=== PATIENT | female | born 1985 | race Caucasian/White ===

== ENCOUNTER 2017-06-01 10:21 | Emergency (ER) | payer OTHER ==
[2017-06-01] MEDS ORDERED: SODIUM CHLORIDE 0.9% 1,000 ML IV STA (10:43)
--- NOTE | 2017-06-01 10:50 | ED ---
Abdominal Pain HPI <Alvaro Sahu - Last Filed: 06/01/17 12:47> - General Source: patient, RN notes reviewed Mode of arrival: ambulatory Limitations: no limitations <Aiden Frazier - Last Filed: 06/01/17 12:52> - General Chief Complaint: Abdominal Pain Stated Complaint: abdominal pain Time Seen by Provider: 06/01/17 10:34 - History of Present Illness Initial Comments: 31-year-old female presents emergency Department chief complaint of upper abdominal pain. Patient states she had pain similar to this proximal one year ago and she was diagnosed with gallstones. She states that she male with the surgeon was can have surgery but the pain resolved so she decided not to have surgery. Patient states the pain started can this morning she went to urgent care was given Toradol which is improved symptoms and denies any nausea vomiting. Denies any known fever. Patient states that she's had no change in bowel habits. She has had a prior tubal ligation, section other abdominal surgeries. Patient denies any dysuria, hematuria, vaginal bleeding vaginal discharge. Denies any acid reflux (Aiden Frazier) - Related Data Previous Rx's Medication Instructions Recorded Hydrocodone/Acetaminophen [[place] 1 tab PO Q6HR PRN #20 tab 06/01/17 5-325] Ondansetron Odt [Zofran Odt] 4 mg PO Q8HR PRN #14 tab 06/01/17 Allergies Allergy/AdvReac Type Severity Reaction Status Date / Time No Known Allergies Allergy Verified 06/01/17 10:53 Review of Systems ROS Other: All systems not noted in ROS Statement are negative. <Alvaro Sahu - Last Filed: 06/01/17 12:47> ROS Other: All systems not noted in ROS Statement are negative. <Aiden Frazier - Last Filed: 06/01/17 12:52> ROS Statement: Those systems with pertinent positive or pertinent negative responses have been documented in the HPI. Past Medical History Past Medical History: No Reported History History of Any Multi-Drug Resistant Organisms: None Reported Past Surgical History: Tubal Ligation Past Psychological History: No Psychological Hx Reported Smoking Status: Never smoker Past Alcohol Use History: None Reported Past Drug Use History: None Reported <Aiden Frazier - Last Filed: 06/01/17 12:52> General Exam Limitations: no limitations General appearance: alert, in no apparent distress Head exam: Present: atraumatic, normocephalic, normal inspection Neck exam: Present: normal inspection, full ROM. Absent: tenderness, meningismus, lymphadenopathy Respiratory exam: Present: normal lung sounds bilaterally. Absent: respiratory distress, wheezes, rales, rhonchi, stridor Cardiovascular Exam: Present: regular rate, normal rhythm, normal heart sounds. Absent: systolic murmur, diastolic murmur, rubs, gallop, clicks GI/Abdominal exam: Present: soft, tenderness (Mild epigastric and right upper quadrant tenderness), normal bowel sounds. Absent: distended, guarding, rebound , rigid Back exam: Absent: CVA tenderness (R), CVA tenderness (L) <Aiden Frazier - Last Filed: 06/01/17 12:52> Course <Alvaro Sahu - Last Filed: 06/01/17 12:47> <Aiden Frazier - Last Filed: 06/01/17 12:52> Vital Signs 06/01/17 06/01/17 10:30 12:40 Temperature 97.7 F 98.2 F Pulse Rate 71 60 Respiratory 18 16 Rate Blood Pressure 131/91 117/62 O2 Sat by Pulse 100 98 Oximetry - Reevaluation(s) Reevaluation #1: 06/01/17 12:47 Patient was evaluated by myself, Dr. Sahu. Patient standing at bedside comfortably. Abdominal exam with mild tenderness right upper quadrant and epigastric. Ultrasound and labs reviewed. Case was discussed in detail with Dr. Schultz, who does feel comfortable with discharge of patient. He feels it is very unlikely for patient to have an obstructed stone with normal enzymes. He will follow-up with patient on . (Alvaro Sahu) Medical Decision Making - Lab Data Result diagrams: 06/01/17 11:05 06/01/17 11:05 <Alvaro Sahu - Last Filed: 06/01/17 12:47> - Lab Data Result diagrams: 06/01/17 11:05 06/01/17 11:05 <Aiden Frazier - Last Filed: 06/01/17 12:52> - Medical Decision Making 31-year-old female presented for right quadrant epigastric pain. Patient's found to have cholelithiasis. Dr. Sahu did discuss case with Dr. bowel will follow-up with the patient on . Patient be discharged with analgesics and antiemetics. Patient advised to return if symptoms worsen. Patient agrees to plan. (Aiden Frazier) - Lab Data Lab Results 06/01/17 06/01/17 06/01/17 Range/Units 11:05 11:05 11:05 WBC 9.8 (3.8-10.6) k/uL RBC 4.52 (3.80-5.40) m/uL Hgb 12.7 (11.4-16.0) gm/dL Hct 37.3 (34.0-46.0) % MCV 82.5 (80.0-100.0) fL MCH 28.1 (25.0-35.0) pg MCHC 34.1 (31.0-37.0) g/dL RDW 13.1 (11.5-15.5) % Plt Count 388 (150-450) k/uL Neutrophils % 82 % Lymphocytes % 13 % Monocytes % 3 % Eosinophils % 1 % Basophils % 1 % Neutrophils # 8.0 H (1.3-7.7) k/uL Lymphocytes # 1.3 (1.0-4.8) k/uL Monocytes # 0.3 (0-1.0) k/uL Eosinophils # 0.1 (0-0.7) k/uL Basophils # 0.1 (0-0.2) k/uL Sodium 141 (137-145) mmol/L Potassium 4.9 (3.5-5.1) mmol/L Chloride 103 (98-107) mmol/L Carbon Dioxide 25 (22-30) mmol/L Anion Gap 13 mmol/L BUN 12 (7-17) mg/dL Creatinine 0.50 L (0.52-1.04) mg/dL Est GFR (CKD-EPI)AfAm >90 (>60 ml/min/1.73 sqM) Est GFR (CKD-EPI)NonAf >90 (>60 ml/min/1.73 sqM) Glucose 147 H (74-99) mg/dL Calcium 9.8 (8.4-10.2) mg/dL Total Bilirubin 0.4 (0.2-1.3) mg/dL AST 32 (14-36) U/L ALT 41 (9-52) U/L Alkaline Phosphatase 78 (38-126) U/L Total Protein 8.0 (6.3-8.2) g/dL Albumin 4.2 (3.5-5.0) g/dL Amylase 52 (30-110) U/L Lipase 125 (23-300) U/L Urine Color Yellow Urine Appearance Clear (Clear) Urine pH 6.5 (5.0-8.0) Ur Specific [place] 1.022 (1.001-1.035) Urine Protein Negative (Negative) Urine Glucose (UA) Negative (Negative) Urine Ketones Negative (Negative) Urine Blood Negative (Negative) Urine Nitrite Negative (Negative) Urine Bilirubin Negative (Negative) Urine Urobilinogen <2.0 (<2.0) mg/dL Ur Leukocyte Esterase Trace H (Negative) Urine RBC 1 (0-5) /hpf Urine WBC 4 (0-5) /hpf Ur Squamous Epith Cells 4 (0-4) /hpf Urine Bacteria Rare H (None) /hpf Urine Mucus Rare H (None) /hpf Disposition <Alvaro Sahu - Last Filed: 06/01/17 12:47> Time of Disposition: 12:52 <Aiden Frazier - Last Filed: 06/01/17 12:52> Clinical Impression: Abdominal pain, Cholelithiasis Disposition: HOME SELF-CARE Condition: Stable Instructions: Gallstones (ED) Additional Instructions: Call Dr. adame's office to schedule appointment on as directed.Please return to the Emergency Department if symptoms worsen or any other concerns. Prescriptions: Hydrocodone/Acetaminophen [[place] 5-325] 1 tab PO Q6HR PRN #20 tab PRN Reason: Pain Ondansetron Odt [Zofran Odt] 4 mg PO Q8HR PRN #14 tab PRN Reason: Nausea Referrals: Fam Ramirez MD [Medical Doctor] - 1-2 days
[2017-06-01 11:24] LABS: Basophils # (A) 0.1 k/uL (0-0.2); Basophils % (A) 1 %; Eosinophils # (A) 0.1 k/uL (0-0.7); Eosinophils % (A) 1 %; HCT 37.3 % (34.0-46.0); HGB 12.7 gm/dL (11.4-16.0); Lymphocytes # (A) 1.3 k/uL (1.0-4.8); Lymphocytes % (A) 13 %; MCH 28.1 pg (25.0-35.0); MCHC 34.1 g/dL (31.0-37.0); MCV 82.5 fL (80.0-100.0); Mean Platelet Volume 7.8; Monocytes # (A) 0.3 k/uL (0-1.0); Monocytes % (A) 3 %; Neutrophils % (A) 82 %; Platelet Count 388 k/uL (150-450); RBC 4.52 m/uL (3.80-5.40); RDW 13.1 % (11.5-15.5); WBC 9.8 k/uL (3.8-10.6)
[2017-06-01 11:38] LABS: Appearance,Urine Clear (Clear); Bacteria,Urine Rare /hpf; Bilirubin,Urine Negative (Negative); Blood,Urine Negative (Negative); Color,Urine Yellow; Glucose,Urine (UA) Negative (Negative); Ketones,Urine Negative (Negative); Leukocyte Esterase,Urine Trace (Negative); Mucus,Urine Rare /hpf; Nitrite,Urine Negative (Negative); PH, Urine 6.5 (5.0-8.0); Protein,Urine Negative (Negative); RBC,Urine 1 /hpf (0-5); Specific Gravity,Urine 1.022 (1.001-1.035); Squamous Epithelial Cell,Urine 4 /hpf (0-4); Urobilinogen,Urine <2.0 mg/dL (<2.0); WBC,Urine 4 /hpf (0-5)
[2017-06-01 11:39] LABS: ALT 41 U/L (9-52); AST 32 U/L (14-36); Albumin 4.2 g/dL (3.5-5.0); Alkaline Phosphatase 78 U/L (38-126); Amylase 52 U/L (30-110); Anion Gap 13 mmol/L; Blood Urea Nitrogen 12 mg/dL (7-17); Calcium 9.8 mg/dL (8.4-10.2); Carbon Dioxide 25 mmol/L (22-30); Chloride 103 mmol/L (98-107); Glucose 147 mg/dL (74-99); Lipase 125 U/L (23-300); Potassium 4.9 mmol/L (3.5-5.1); Sodium 141 mmol/L (137-145); Total Bilirubin 0.4 mg/dL (0.2-1.3)
--- NOTE | 2017-06-01 11:59 | US ---
EXAMINATION TYPE: US abdomen limited DATE OF EXAM: 06/01/2017 COMPARISON: NONE CLINICAL HISTORY: Pain. patient had an episode last year and outside US showed stones, opted out of s urgery, extreme pain EXAM MEASUREMENTS: Liver Length: 18.1 cm Gallbladder Wall: 0.2 cm CBD: 0.8 cm Right Kidney: 11.9 x 4.6 x 5.3 cm Pancreas: overlying bowel obscures body and tail Liver: difficult to penetrate Gallbladder: non mobile neck stone seen, multiple fundal stones, appearance of mobile sludge when ro lled patient Evidence for sonographic Etienne's sign: YES CBD: slightly dilated Right Kidney: wnl IMPRESSION: 1. Liver was difficult to penetrate which is a nonspecific finding can be seen with fatty infiltratio n or hepatocellular disease. Correlate clinically. 2. Cholelithiasis with dilation of the CBD measuring 8 mm. Distal CBD stone in the differential diagn osis.
[2017-06-01 12:43] VITALS: BP 117/62; PULSE 60; RESP 16; TEMP 98.2
== END 2017-06-01 13:10 | disposition home or self-care (01) ==
LOC: EC 10:21
DX: K80.20 Calculus of gallbladder without cholecystitis without obstruction (principal); Z98.51 Tubal ligation status
CPT/HCPCS: 36415; 76705; 80053; 81001; 82150; 83690; 85025; 96360; 99284

== ENCOUNTER 2017-06-03 05:51 | Inpatient (IN) | payer OTHER ==
[2017-06-03] MEDS ORDERED: MORPHINE SULFATE 4 MG/ML SYRINGE IV STA (06:12)
[2017-06-03] MEDS ORDERED: SODIUM CHLORIDE 0.9% 500 ML IV STA (06:12)
[2017-06-03] MEDS ORDERED: ONDANSETRON 4 MG/2 ML VIAL IVP STA ×2 (06:12→09:47)
[2017-06-03 06:42] LABS: Basophils # (A) 0.1 k/uL (0-0.2); Basophils % (A) 1 %; Eosinophils # (A) 0.2 k/uL (0-0.7); Eosinophils % (A) 1 %; HCT 35.9 % (34.0-46.0); HGB 12.2 gm/dL (11.4-16.0); Lymphocytes # (A) 2.2 k/uL (1.0-4.8); Lymphocytes % (A) 18 %; MCH 28.2 pg (25.0-35.0); Mean Platelet Volume 7.2; Monocytes # (A) 0.6 k/uL (0-1.0); Monocytes % (A) 5 %; Neutrophils # (A) 8.8 k/uL (1.3-7.7); Neutrophils % (A) 73 %; Platelet Count 341 k/uL (150-450); RBC 4.33 m/uL (3.80-5.40); RDW 13.1 % (11.5-15.5)
[2017-06-03 06:50] LABS: ALT 38 U/L (9-52); AST 20 U/L (14-36); Albumin 3.8 g/dL (3.5-5.0); Alkaline Phosphatase 73 U/L (38-126); Amylase 48 U/L (30-110); Anion Gap 9 mmol/L; Blood Urea Nitrogen 12 mg/dL (7-17); Calcium 9.4 mg/dL (8.4-10.2); Carbon Dioxide 27 mmol/L (22-30); Chloride 105 mmol/L (98-107); Glucose 100 mg/dL (74-99); Lipase 91 U/L (23-300); Potassium 4.4 mmol/L (3.5-5.1); Sodium 141 mmol/L (137-145); Total Bilirubin 0.6 mg/dL (0.2-1.3); Total Protein 7.2 g/dL (6.3-8.2)
--- NOTE | 2017-06-03 07:33 | ED ---
Abdominal Pain HPI - General Source: patient Mode of arrival: ambulatory Limitations: no limitations <Yomi Shah - Last Filed: 06/03/17 07:33> <Leroy Echavarria - Last Filed: 06/03/17 10:13> - General Chief Complaint: Abdominal Pain Stated Complaint: abd pain Time Seen by Provider: 06/03/17 06:12 - History of Present Illness Initial Comments: 31 years O female presents with the abdominal pain, she said she was here couple days ago for the same pain, pain is worse now she was supposed to see a surgeon as outpatient for gallstones. She denies any fever no chills she is nauseous no vomiting though has been moving her bowels pretty regular no frequency urgency dysuria no symptoms of TIA or CVA, review of system is unremarkable otherwise (Yomi Shah) - Related Data Previous Rx's Medication Instructions Recorded Hydrocodone/Acetaminophen [[place] 1 tab PO Q6HR PRN #20 tab 06/01/17 5-325] Ondansetron Odt [Zofran Odt] 4 mg PO Q8HR PRN #14 tab 06/01/17 Allergies Allergy/AdvReac Type Severity Reaction Status Date / Time No Known Allergies Allergy Verified 06/03/17 05:56 Review of Systems ROS Other: All systems not noted in ROS Statement are negative. <Yomi Shah - Last Filed: 06/03/17 07:33> ROS Other: All systems not noted in ROS Statement are negative. <Leroy Echavarria - Last Filed: 06/03/17 10:13> ROS Statement: Those systems with pertinent positive or pertinent negative responses have been documented in the HPI. Past Medical History Past Medical History: No Reported History Additional Past Medical History / Comment(s): gallbladder History of Any Multi-Drug Resistant Organisms: None Reported Past Surgical History: Tubal Ligation Past Psychological History: No Psychological Hx Reported Smoking Status: Never smoker Past Alcohol Use History: None Reported Past Drug Use History: None Reported <Yomi Shah - Last Filed: 06/03/17 07:33> General Exam Limitations: no limitations <Yomi Shah - Last Filed: 06/03/17 07:33> <Leroy Echavarria - Last Filed: 06/03/17 10:13> - General Exam Comments Initial Comments: General: The patient is awake and alert, in no distress, and does not appear acutely ill. Skin: Skin is warm and dry and no rashes or lesions are noted. Eye: Pupils are equal, round and reactive to light, extra-ocular movements are intact; there is normal conjunctiva bilaterally. Ears, nose, mouth and throat: There are moist mucous membranes and no oral lesions. Neck: The neck is supple, there is no tenderness or JVD. Cardiovascular: There is a regular rate and rhythm. No murmur, rub or gallop is appreciated. Respiratory: To auscultation bilateral, no wheezing no rhonchi no distress respiratory celeste noticed Gastrointestinal: And over the epigastric area and the right upper quadrant area positive bowel sounds Back: There is no tenderness to palpation in the midline. There is no obvious deformity. Musculoskeletal: Normal ROM, no tenderness, There is no pedal edema. There is no calf tenderness or swelling. No cords were appreciated. Neurological: CN II-XII intact, Cranial nerves III through XII are intact. There are no obvious motor or sensory deficits. Coordination appears grossly intact. Speech is normal. Psychiatric: Cooperative, appropriate mood & affect, normal judgment. (Yomi Shah) Course <Yomi Shah - Last Filed: 06/03/17 07:33> <Leroy Echavarria - Last Filed: 06/03/17 10:13> Vital Signs 06/03/17 06/03/17 05:54 08:42 Temperature 97.8 F 97.6 F Pulse Rate 84 87 Respiratory 18 18 Rate Blood Pressure 134/78 124/76 O2 Sat by Pulse 99 99 Oximetry Condition is reassessed at term 7:30, white count is slightly elevated compress metabolic panel is unremarkable so are the LFTs,, ultrasound report was reviewed from her previous visit to the ER, it shows gallstones and dilatation of the duct, considering her symptoms will proceed with the CT of the abdomen and pelvis to assess her for possible acute cholecystitis, will be endorsed to DR Echavarria for further follow up on Ct abdomin (Yomi Shah) Medical Decision Making - Lab Data Result diagrams: 06/03/17 06:32 06/03/17 06:32 <Yomi Shah - Last Filed: 06/03/17 07:33> - Lab Data Result diagrams: 06/03/17 06:32 06/03/17 06:32 - Radiology Data Radiology results: report reviewed (CT abdomen and pelvis is positive for gallbladder disease), image reviewed <Leroy Echavarria - Last Filed: 06/03/17 10:13> - Medical Decision Making 31 female the ER for evaluation of severe abdominal pain intractable nausea vomiting history of gallbladder disease, positive: Lithiasis with cholecystitis. Patient be admitted for surgical treatment (Leroy Echavarria ) - Lab Data Lab Results 06/03/17 06/03/17 06/03/17 Range/Units 06:32 06:32 07:46 WBC 12.0 H (3.8-10.6) k/uL RBC 4.33 (3.80-5.40) m/uL Hgb 12.2 (11.4-16.0) gm/dL Hct 35.9 (34.0-46.0) % MCV 83.0 (80.0-100.0) fL MCH 28.2 (25.0-35.0) pg MCHC 34.0 (31.0-37.0) g/dL RDW 13.1 (11.5-15.5) % Plt Count 341 (150-450) k/uL Neutrophils % 73 % Lymphocytes % 18 % Monocytes % 5 % Eosinophils % 1 % Basophils % 1 % Neutrophils # 8.8 H (1.3-7.7) k/uL Lymphocytes # 2.2 (1.0-4.8) k/uL Monocytes # 0.6 (0-1.0) k/uL Eosinophils # 0.2 (0-0.7) k/uL Basophils # 0.1 (0-0.2) k/uL Sodium 141 (137-145) mmol/L Potassium 4.4 (3.5-5.1) mmol/L Chloride 105 (98-107) mmol/L Carbon Dioxide 27 (22-30) mmol/L Anion Gap 9 mmol/L BUN 12 (7-17) mg/dL Creatinine 0.50 L (0.52-1.04) mg/dL Est GFR (CKD-EPI)AfAm >90 (>60 ml/min/1.73 sqM) Est GFR (CKD-EPI)NonAf >90 (>60 ml/min/1.73 sqM) Glucose 100 H (74-99) mg/dL Calcium 9.4 (8.4-10.2) mg/dL Total Bilirubin 0.6 (0.2-1.3) mg/dL AST 20 (14-36) U/L ALT 38 (9-52) U/L Alkaline Phosphatase 73 (38-126) U/L Total Protein 7.2 (6.3-8.2) g/dL Albumin 3.8 (3.5-5.0) g/dL Amylase 48 (30-110) U/L Lipase 91 (23-300) U/L Urine Color Yellow Urine Appearance Cloudy H (Clear) Urine pH 5.5 (5.0-8.0) Ur Specific [place] 1.019 (1.001-1.035) Urine Protein Negative (Negative) Urine Glucose (UA) Negative (Negative) Urine Ketones Negative (Negative) Urine Blood Negative (Negative) Urine Nitrite Negative (Negative) Urine Bilirubin Negative (Negative) Urine Urobilinogen <2.0 (<2.0) mg/dL Ur Leukocyte Esterase Large H (Negative) Urine RBC 4 (0-5) /hpf Urine WBC 29 H (0-5) /hpf Ur Squamous Epith Cells 7 H (0-4) /hpf Urine Bacteria Rare H (None) /hpf Urine Mucus Rare H (None) /hpf Disposition <oYmi Shah - Last Filed: 06/03/17 07:33> <Leroy Echavarria - Last Filed: 06/03/17 10:13> Clinical Impression: Right upper quadrant pain, Abdominal pain, Cholelithiasis Disposition: ADMITTED IP TO THIS [facility] Condition: Good Referrals: None,Stated [Primary Care Provider] - 1-2 days
--- NOTE | 2017-06-03 07:50 | XR ---
AP UPRIGHT ABDOMINAL XRAY: HISTORY: 31-year-old female with upper abdominal pain. COMPARISON: Right upper quadrant abdominal ultrasound 06/01/2017. FINDINGS: Bowel gas pattern is grossly unremarkable, noting average to slightly above average amount of stool throughout the large bowel. No obvious ascites or pneumoperitoneum. No obvious abdominal mass or significant organomegaly. No abnormal extraosseous calcifications. Imaged lung bases are clear. IMPRESSION: Unremarkable one view abdomen.
[2017-06-03] MEDS ORDERED: MORPHINE SULFATE 4 MG/ML SYRINGE IVP STA (07:52)
[2017-06-03] MEDS ORDERED: RX INFO: IV CONTRAST WAS GIVEN 1 EACH MISC MISCELLANE PRN (07:58)
[2017-06-03 08:11] LABS: Appearance,Urine Cloudy (Clear); Bacteria,Urine Rare /hpf; Bilirubin,Urine Negative (Negative); Blood,Urine Negative (Negative); Color,Urine Yellow; Glucose,Urine (UA) Negative (Negative); Ketones,Urine Negative (Negative); Leukocyte Esterase,Urine Large (Negative); Mucus,Urine Rare /hpf; Nitrite,Urine Negative (Negative); PH, Urine 5.5 (5.0-8.0); Protein,Urine Negative (Negative); RBC,Urine 4 /hpf (0-5); Specific Gravity,Urine 1.019 (1.001-1.035); Squamous Epithelial Cell,Urine 7 /hpf (0-4); Urobilinogen,Urine <2.0 mg/dL (<2.0); WBC,Urine 29 /hpf (0-5)
[2017-06-03] MEDS ORDERED: cefTRIAXone IN SWFI 1,000 MG/10 ML SYRINGE IVP STA (09:17)
--- NOTE | 2017-06-03 09:20 | CT ---
EXAMINATION TYPE: CT abdomen pelvis w con DATE OF EXAM: 06/03/2017 COMPARISON: NONE INDICATION: Abdominal pain DLP: 1794 mGycm, Automated exposure control for dose reduction was used. CONTRAST: 100 ml mL of Omnipaque 300. Study performed without Oral Contrast TECHNIQUE: Axial images were obtained from above the diaphragm to the pubic rami in the axial plane a t 5 mm thick sections. Reconstructed images are reviewed on the computer in the coronal plane. FINDINGS: Limited CT sections are obtained the lung bases. The lung bases are clear. CT ABDOMEN: Liver: Normal Spleen: Normal Pancreas: Normal Adrenal glands: The adrenal glands are normal. Gallbladder: Gallstone is likely present with some air within the cholesterol stone. A larger calcifi ed stones at the neck of the gallbladder. No pericholecystic fluid or gallbladder wall thickening is evident. This could be better evaluated with ultrasound. Kidneys: No masses are evident. No hydronephrosis is present. No cysts are present. Delayed images were obtained through the kidneys, which remain unremarkable. Aorta: Normal Inferior vena cava: Normal. CT PELVIS: Loops of bowel within the abdomen and pelvis are normal. A few scattered diverticuli are present. No acute diverticulitis is evident. Appendix: Normal as visualized. Urinary bladder: Normal as visualized. This decompressed and is limited evaluation. Genitourinary structures: Uterus is normal. Follicles appear to be present on the bilateral ovaries. No free fluid is within the pelvis. Osseous structures: No suspicious lytic or sclerotic lesions. IMPRESSIONS: 1. Cholelithiasis. 2. No suspicious changes to account for abdominal pain.
[2017-06-03] MEDS ORDERED: MORPHINE SULFATE 4 MG/ML SYRINGE IVP PRN (09:47)
[2017-06-03] MEDS ORDERED: ONDANSETRON 4 MG/2 ML VIAL IVP PRN (09:47)
[2017-06-03] MEDS ORDERED: FAMOTIDINE 20 MG/2 ML VIAL IV STA (09:49)
[2017-06-03] MEDS ORDERED: diphenhydrAMINE 50 MG/ML 1 ML VIAL IVP STA (09:49)
[2017-06-03] MEDS ORDERED: SODIUM CHLORIDE 0.9% 1,000 ML IV ONE (10:12)
[2017-06-03] MEDS: MORPHINE SULFATE 4 MG/ML SYRINGE IVP PRN ×3 (14:10→22:40)
[2017-06-03] MEDS ORDERED: IV FLUID CONTINUATION 1,000 ML IV ONE (15:48)
[2017-06-03] MEDS ORDERED: LEVOFLOXACIN 500MG-D5W PMX 500 MG in DEXTROSE/WATER 1 100ML.BAG IVPB STA (17:06)
[2017-06-03] MEDS ORDERED: HEPARIN SODIUM,PORCINE 5,000 UNIT/ML 1 ML VIAL SQ ONE (17:07)
--- NOTE | 2017-06-03 17:08 | P.GSHP ---
History of Present Illness H&P Date: 06/03/17 Chief Complaint: Acute calculus cholecystitis Patient returns to the ER today with complaints of right upper quadrant and epigastric pain. Pain radiates to the right back. Pain is been present for the last several days. She was in the ER 2 days ago. Ultrasound showed gallstones with a slightly dilated bile duct of 8 mm. Liver enzymes were normal. Today she returns to the hospital. White blood cell count slightly elevated. CAT scan shows a slightly thickened gallbladder wall. Her liver enzymes are again normal. Denies any changes in the color of her skin urine or stool. Appetite diminished. No fevers. - Review of Systems Comment: The patient denies any acute changes in vision or hearing, no dysphagia or odynophagia, no chest pain or shortness of breath, no dysuria or hematuria, no headache, no runny nose, no rectal bleeding or melena, no unexplained weight loss Past Medical History Past Medical History: No Reported History Additional Past Medical History / Comment(s): gallbladder, past food poisoning requiring her to receive plasma per pt. History of Any Multi-Drug Resistant Organisms: None Reported Past Surgical History: Section, Tubal Ligation Past Anesthesia/Blood Transfusion Reactions: No Reported Reaction Additional Past Anesthesia/Blood Transfusion Reaction / Comment(s): Pt has received plasma after food poisoning and after the child . Smoking Status: Never smoker - Past Family History Father Family Medical History: Diabetes Mellitus Mother Family Medical History: Renal Disease Additional Family Medical History / Comment(s): Mother receives dialysis. Medications and Allergies Home Medications Medication Instructions Recorded Confirmed Type Hydrocodone/Acetaminophen [[place] 1 tab PO Q6HR PRN #20 tab 06/01/17 06/03/17 Rx 5-325] Ondansetron Odt [Zofran Odt] 4 mg PO Q8HR PRN #14 tab 06/01/17 06/03/17 Rx Allergies Allergy/AdvReac Type Severity Reaction Status Date / Time ceftriaxone [From Rocephin] Allergy Nausea & Verified 06/03/17 15:11 Vomiting Surgical - Exam Vital Signs Temp Pulse Resp BP Pulse Ox 97.8 F 84 18 134/78 99 06/03/17 05:54 06/03/17 05:54 06/03/17 05:54 06/03/17 05:54 06/03/17 05:54 Physical exam: General: Well-developed, well-nourished HEENT: Normocephalic, sclerae nonicteric Abdomen: Moderate right upper quadrant tenderness with positive Etienne's, nondistended Extremities: No edema Neuro: Alert and oriented Results - Labs 06/03/17 06:32 06/03/17 06:32 Abnormal Lab Results - Last 24 Hours (Table) 06/03/17 06/03/17 06/03/17 Range/Units 06:32 06:32 07:46 WBC 12.0 H (3.8-10.6) k/uL Neutrophils # 8.8 H (1.3-7.7) k/uL Creatinine 0.50 L (0.52-1.04) mg/dL Glucose 100 H (74-99) mg/dL Urine Appearance Cloudy H (Clear) Ur Leukocyte Esterase Large H (Negative) Urine WBC 29 H (0-5) /hpf Ur Squamous Epith Cells 7 H (0-4) /hpf Urine Bacteria Rare H (None) /hpf Urine Mucus Rare H (None) /hpf Microbiology - Last 24 Hours (Table) 06/03/17 07:46 Urine Culture - Preliminary Urine,Voided Diabetes panel 06/03/17 Range/Units 06:32 Sodium 141 (137-145) mmol/L Potassium 4.4 (3.5-5.1) mmol/L Chloride 105 (98-107) mmol/L Carbon Dioxide 27 (22-30) mmol/L BUN 12 (7-17) mg/dL Creatinine 0.50 L (0.52-1.04) mg/dL Glucose 100 H (74-99) mg/dL Calcium 9.4 (8.4-10.2) mg/dL AST 20 (14-36) U/L ALT 38 (9-52) U/L Alkaline Phosphatase 73 (38-126) U/L Total Protein 7.2 (6.3-8.2) g/dL Albumin 3.8 (3.5-5.0) g/dL Calcium panel 06/03/17 Range/Units 06:32 Calcium 9.4 (8.4-10.2) mg/dL Albumin 3.8 (3.5-5.0) g/dL Pituitary panel 06/03/17 Range/Units 06:32 Sodium 141 (137-145) mmol/L Potassium 4.4 (3.5-5.1) mmol/L Chloride 105 (98-107) mmol/L Carbon Dioxide 27 (22-30) mmol/L BUN 12 (7-17) mg/dL Creatinine 0.50 L (0.52-1.04) mg/dL Glucose 100 H (74-99) mg/dL Calcium 9.4 (8.4-10.2) mg/dL Adrenal panel 06/03/17 Range/Units 06:32 Sodium 141 (137-145) mmol/L Potassium 4.4 (3.5-5.1) mmol/L Chloride 105 (98-107) mmol/L Carbon Dioxide 27 (22-30) mmol/L BUN 12 (7-17) mg/dL Creatinine 0.50 L (0.52-1.04) mg/dL Glucose 100 H (74-99) mg/dL Calcium 9.4 (8.4-10.2) mg/dL Total Bilirubin 0.6 (0.2-1.3) mg/dL AST 20 (14-36) U/L ALT 38 (9-52) U/L Alkaline Phosphatase 73 (38-126) U/L Total Protein 7.2 (6.3-8.2) g/dL Albumin 3.8 (3.5-5.0) g/dL Assessment and Plan (1) Acute cholecystitis due to biliary calculus Narrative/Plan: Clinical scenario discussed in detail with the patient and her family. We'll proceed with laparoscopic, possible open cholecystectomy. Risks of bleeding, infection, bile duct injury, bile leak, retained common bile duct stone, trocar injury, anesthesia complications were discussed. She understands and wishes to proceed. Current Visit: Yes Status: Acute Code(s): K80.00 - CALCULUS OF GALLBLADDER W ACUTE CHOLECYST W/O OBSTRUCTION SNOMED Code(s): 14002496106534
[2017-06-03] MEDS ORDERED: PROPOFOL 10 MG/ML 20 ML VIAL IV ONE (17:11)
[2017-06-03] MEDS ORDERED: GLYCOPYRROLATE 0.2 MG/ML 2 ML VIAL ONE (17:11)
[2017-06-03] MEDS ORDERED: ROCURONIUM BROMIDE 10 MG/ML 10 ML VIAL IV ONE (17:11)
[2017-06-03] MEDS ORDERED: MIDAZOLAM 2 MG/2 ML VIAL ONE (17:11)
[2017-06-03] MEDS ORDERED: fentaNYL (PF) 50 MCG/ML 2 ML AMP ONE (17:11)
[2017-06-03] MEDS ORDERED: BUPIVACAINE (PF) 0.25% 30 ML VIAL SQ ONE (17:11)
[2017-06-03] MEDS ORDERED: LIDOCAINE 1% INJ 10MG/ML (20 ML MDV) ONE (17:11)
[2017-06-03] MEDS ORDERED: SUCCINYLCHOLINE CHLORIDE 100 MG/5 ML SYR IV ONE (17:11)
[2017-06-03] MEDS ORDERED: NEOSTIGMINE 1 MG/ML 10 ML VIAL ONE (17:11)
[2017-06-03] MEDS ORDERED: LACTATED RINGERS 1,000 ML IV ONE (17:36)
--- NOTE | 2017-06-03 19:00 | P.OP ---
Date of Procedure: 06/03/17 Procedure(s) Performed: PREOPERATIVE DIAGNOSIS: Acute cholecystitis POSTOPERATIVE DIAGNOSIS: Acute gangrenous cholecystitis with hydrops PROCEDURE: Laparoscopic cholecystectomy SURGEON: Ashley EBL: Minimal see anesthesia record ANESTHESIA: Gen. COMPLICATIONS: None OPERATIVE PROCEDURE: The patient was brought and placed on the operating room table in the supine position. The patient was placed under general anesthesia at that time. The abdomen was prepped and draped in the usual sterile fashion. A small vertical supraumbilical incision was made. The fascia was grasped with the Zora forceps. The fascia was retracted anteriorly. The Veress needle was advanced into the peritoneal cavity. The saline drop test was normal. Insufflation took place up to 15 mmHg. A 5 mm optical trocar was advanced and the peritoneal cavity. 2 additional 5 mm trochars were placed in the right upper quadrant under direct visualization. A 12 mm trocar was advanced into the epigastric incision site. The gallbladder was acutely inflamed. There was the suggestion of mild gangrenous changes at the tip of the fundus. The gallbladder was quite tense. A small hole was made in the fundus of the gallbladder and clear fluid was evacuated. The wall the gallbladder was thickened. The gallbladder was retracted superiorly and laterally. The peritoneum overlying the infundibulum was bluntly dissected. The patient's cystic duct was visualized. The junction between the cystic duct common and hepatic duct was identified. The cystic duct was then divided after placement of 2 12 mm clips on the patient's side and one on the specimen side. The cystic artery was identified and clipped as well. A small vessel was seen along the gallbladder fossa and clipped as well. The gallbladder was then removed from the liver bed using electrocautery. The gallbladder was then removed from the epigastric trocar site with an Endo Catch bag. The gallbladder fossa was irrigated with saline. There was no evidence of any bleeding or biliary drainage seen. The trochars were then removed. The fascia at the 10 millimeter site was closed using a running 0 Vicryl stitch. The skin at all 4 sites was closed using a 4-0 Monocryl stitch. At the end of this procedure the sponge and needle counts were correct. DISPOSITION: Stable to the recovery room
[2017-06-03] MEDS: KETOROLAC 30 MG/ML 1 ML VIAL IVP SCH (19:28)
[2017-06-03] MEDS: FAMOTIDINE 20 MG/2 ML VIAL IV SCH (21:50)
[2017-06-04] MEDS: HEPARIN SODIUM,PORCINE 5,000 UNIT/ML 1 ML VIAL SQ SCH ×3 (00:35→16:34)
[2017-06-04] MEDS: MORPHINE SULFATE 4 MG/ML SYRINGE IVP PRN ×3 (00:35→05:35)
[2017-06-04] MEDS: KETOROLAC 30 MG/ML 1 ML VIAL IVP SCH ×3 (01:04→12:10)
[2017-06-04] MEDS: HYDROcodone/APAP 5-325MG 1 EACH TAB PO PRN ×2 (07:59→12:10)
[2017-06-04] MEDS: ACETAMINOPHEN TAB 325 MG TAB PO PRN ×2 (08:01→12:09)
[2017-06-04 08:56] VITALS: RESP 18
--- NOTE | 2017-06-04 12:20 | P.PN ---
<Tammi Dewey - Last Filed: 06/04/17 12:21> Subjective Progress Note Date: 06/04/17 31-year-old female seen and examined. Patient has been up ambulatory on the unit states belching but not passing gas rectally. Pain medication effective for pain control. Surgical dressing dry no reports of nausea vomiting afebrile Laparoscopic cholecystectomy done on June 03 Objective - Vital Signs Vital signs: Vital Signs Temp 99.3 F 06/04/17 08:08 Pulse 99 06/04/17 08:08 Resp 18 06/04/17 08:08 BP 117/75 06/04/17 08:08 Pulse Ox 93 L 06/04/17 08:08 Intake & Output 06/03/17 06/04/17 06/04/17 18:59 06:59 18:59 Intake Total 1300 1390 200 Output Total 210 500 Balance 1090 890 200 Weight 73.936 kg Intake: IV 1300 100 Intake, IV Titration 970 Amount Lactated Ringers 1,000 ml 970 As IV .STK-MED ONE Rx#: [id number] Oral 320 200 Output: Urine 200 500 Estimated Blood Loss 10 Other: Voiding Method Toilet # Voids 2 1 - Exam Physical exam 31-year-old female up ambulatory on the unit pleasant cooperative Lungs adequate air movement bilaterally on room air Heart S1-S2 audible and regular Abdomen surgical dressing sites dry soft surgical tenderness appropriate a few hypoactive bowel sounds reports no nausea vomiting tolerating diet pain medication effective for pain control states belching passing no gas Extremities no edema noted - Labs CBC & Chem 7: 06/03/17 06:32 06/03/17 06:32 Labs: Microbiology - Last 24 Hours (Table) 06/03/17 07:46 Urine Culture - Preliminary Urine,Voided Assessment and Plan Assessment: Impression Present on admission right upper quadrant pain suspect due to an acute gangrenous cholecystitis with hydrops Postop June 03 laparoscopic cholecystectomy for acute cholecystitis due to biliary calculus Leukocytosis present on admission suspect reactive Plan Continue postop surgical care Increase activity Pain control Increase use of incentive spirometer DVT and GI prophylaxis Continue IV Levaquin as ordered The above impression and plan of care have been discussed and directed by signing physician. Tammi Dewey nurse practitioner acting as scribe for signing physician. <Fam Ramirez - Last Filed: 06/04/17 15:56> Objective - Vital Signs Vital signs: Vital Signs Temp 98.0 F 06/04/17 11:51 Pulse 91 06/04/17 11:51 Resp 18 06/04/17 11:51 BP 117/81 06/04/17 11:51 Pulse Ox 96 06/04/17 11:51 Intake & Output 06/03/17 06/04/17 06/04/17 18:59 06:59 18:59 Intake Total 1300 1390 430 Output Total 210 500 Balance 1090 890 430 Weight 73.936 kg Intake: IV 1300 100 Intake, IV Titration 970 Amount Lactated Ringers 1,000 ml 970 As IV .STK-MED ONE Rx#: [id number] Oral 320 430 Output: Urine 200 500 Estimated Blood Loss 10 Other: Voiding Method Toilet # Voids 2 1 - Labs CBC & Chem 7: 06/03/17 06:32 06/03/17 06:32 Labs: Microbiology - Last 24 Hours (Table) 06/03/17 07:46 Urine Culture - Preliminary Urine,Voided Assessment and Plan Assessment: As above See discharge summary (1) Acute cholecystitis due to biliary calculus Current Visit: Yes Status: Acute Code(s): K80.00 - CALCULUS OF GALLBLADDER W ACUTE CHOLECYST W/O OBSTRUCTION SNOMED Code(s): 05316502606206
[2017-06-04 13:33] VITALS: TEMP 98
[2017-06-04] MEDS: FAMOTIDINE 20 MG/2 ML VIAL IV SCH (13:47)
--- NOTE | 2017-06-04 15:57 | P.DS ---
Providers Date of admission: 06/04/17 10:41 Attending physician: Fam Ramirez Primary care physician: Stated None - Discharge Diagnosis(es) (1) Acute cholecystitis due to biliary calculus Current Visit: Yes Status: Acute Hospital Course: Patient underwent admission for acute cholecystitis. Yesterday she underwent laparoscopic cholecystectomy. Today she is feeling well. Pain is well- controlled. She is tolerating diet currently. She would like to go home. We' ll discharge today. Follow-up 1 week. Home on [place] and Levaquin. Patient Condition at Discharge: Good Plan - Discharge Summary Discharge Rx Participant: No New Discharge Prescriptions: No Action Hydrocodone/Acetaminophen [[place] 5-325] 1 tab PO Q6HR PRN #20 tab PRN Reason: Pain Ondansetron Odt [Zofran Odt] 4 mg PO Q8HR PRN #14 tab PRN Reason: Nausea Discharge Medication List Hydrocodone/Acetaminophen [[place] 5-325] 1 tab PO Q6HR PRN #20 tab 06/01/17 [Rx] Ondansetron Odt [Zofran Odt] 4 mg PO Q8HR PRN #14 tab 06/01/17 [Rx] Follow up Appointment(s)/Referral(s): Fam Ramirez MD [Medical Doctor] - 2 Weeks None,Stated [Primary Care Provider] - 1-2 days
[2017-06-04 16:21] LABS: C. trachomatis,PCR Negative (Neg,Equiv); Chlamydia trachomatis Source Urine; N. gonorrhoeae,PCR Negative (Neg,Equiv); Neisseria Source Urine
[2017-06-04] MEDS ORDERED: LEVOFLOXACIN 500MG-D5W PMX 500 MG in DEXTROSE/WATER 1 100ML.BAG IVPB SCH (17:00)
[2017-06-04 17:18] VITALS: BP 103/67; PULSE 85
== END 2017-06-04 18:13 | disposition home or self-care (01) | DRG 418 ==
LOC: EC 05:51 → 6PED 10:12 → OBSVTOIN 06-04 10:41
PROVIDERS: ADMIT Surgery; ATTEND Surgery
PROC: 0FT44ZZ Resection of Gallbladder, Percutaneous Endoscopic Approach (ICD-10-PCS; principal; 2017-06-04)
DX: K80.00 Calculus of gallbladder with acute cholecystitis without obstruction (principal); K82.1 Hydrops of gallbladder; Z83.3 Family history of diabetes mellitus; Z88.1 Allergy status to other antibiotic agents
CPT/HCPCS: 36415; 74018; 74177; 80053; 81001; 81025; 82150; 83690; 85025; 87086; 87491; 87591; 88304; 96361; 96374; 96375; 96376; 99285

== ENCOUNTER 2017-10-19 10:00 | Emergency (ER) | payer OTHER ==
[2017-10-19 10:16] VITALS: BP 130/87; PULSE 70; TEMP 98.2
--- NOTE | 2017-10-19 10:56 | ED ---
General Adult HPI - General Chief complaint: Skin/Abscess/Foreign Body Stated complaint: rash over lt eye Time Seen by Provider: 10/19/17 10:19 Source: patient, RN notes reviewed Mode of arrival: ambulatory Limitations: no limitations - History of Present Illness Initial comments: Patient 32-year-old female presented to the emergency room today with a chief complaint of rash to left side of the face. She states she noticed it 4 days ago. She states they are tender. She states she had one spot that started left eyebrow no symptoms to be spreading up into the hairline. Patient denies any other complaints or symptoms. Patient denies any recent fever, chills, shortness of breath, chest pain, back pain, abdominal pain, nausea or vomiting, numbness or tingling, dysuria or hematuria, constipation or diarrhea, headaches or visual changes, or any other complaints. - Related Data Previous Rx's Medication Instructions Recorded Ibuprofen [Motrin] 800 mg PO Q6HR #30 tab 10/19/17 predniSONE 60 mg PO DAILY 5 Days tab 10/19/17 valACYclovir HCL [Valtrex] 1,000 mg PO TID #21 tablet 10/19/17 Allergies Allergy/AdvReac Type Severity Reaction Status Date / Time ceftriaxone [From Rocephin] Allergy Nausea & Verified 10/19/17 10:33 Vomiting Review of Systems ROS Statement: Those systems with pertinent positive or pertinent negative responses have been documented in the HPI. ROS Other: All systems not noted in ROS Statement are negative. Past Medical History Past Medical History: No Reported History Additional Past Medical History / Comment(s): gallbladder, past food poisoning requiring her to receive plasma per pt. History of Any Multi-Drug Resistant Organisms: None Reported Past Surgical History: Section, Tubal Ligation Past Anesthesia/Blood Transfusion Reactions: No Reported Reaction Additional Past Anesthesia/Blood Transfusion Reaction / Comment(s): Pt has received plasma after food poisoning and after the child . Past Psychological History: No Psychological Hx Reported Smoking Status: Never smoker Past Alcohol Use History: None Reported Past Drug Use History: None Reported - Past Family History Father Family Medical History: Diabetes Mellitus Mother Family Medical History: Renal Disease Additional Family Medical History / Comment(s): Mother receives dialysis. General Exam - General Exam Comments Initial Comments: General: The patient is awake and alert, in no distress, and does not appear acutely ill. Eye: Pupils are equal, round and reactive to light, extra-ocular movements are intact. No nystagmus. There is normal conjunctiva bilaterally. No signs of icterus. Ears, nose, mouth and throat: There are moist mucous membranes and no oral lesions. Neck: The neck is supple, there is no tenderness or JVD. Cardiovascular: There is a regular rate and rhythm. No murmur, rub or gallop is appreciated. Respiratory: Lungs are clear to auscultation, respirations are non-labored, breath sounds are equal. No wheezes, stridor, rales, or rhonchi. Musculoskeletal: Normal ROM, no tenderness. Strength 5/5. Sensation intact. Pulses equal bilaterally 2+. Neurological: A&O x 3. CN II-XII intact, There are no obvious motor or sensory deficits. Coordination appears grossly intact. Speech is normal. Skin: Rash to the left side of the forehead: Up into the hairline. Psychiatric: Cooperative, appropriate mood & affect, normal judgment. Limitations: no limitations Course Vital Signs 10/19/17 10:14 Temperature 98.2 F Pulse Rate 70 Respiratory 16 Rate Blood Pressure 130/87 O2 Sat by Pulse 98 Oximetry Medical Decision Making - Medical Decision Making Signs and symptoms of motion. Discussed with the patient. She'll be started on antivirals, steroids and pain medication. Disposition Clinical Impression: Herpes zoster Disposition: HOME SELF-CARE Condition: Good Instructions: Shingles (ED) Additional Instructions: Please use medication as discussed. Please follow-up with family doctor in the next 2 days of symptoms have not improved. Please return to emergency room if the symptoms increase or worsen or for any other concerns. Prescriptions: Ibuprofen [Motrin] 800 mg PO Q6HR #30 tab predniSONE 60 mg PO DAILY 5 Days tab valACYclovir HCL [Valtrex] 1,000 mg PO TID #21 tablet Is patient prescribed a controlled substance at d/c from ED?: No Referrals: None,Stated [Primary Care Provider] - 1-2 days Qasim Todd MD [STAFF PHYSICIAN] - 1-2 days Time of Disposition: 10:55
[2017-10-19 11:09] VITALS: RESP 18
== END 2017-10-19 11:09 | disposition home or self-care (01) ==
LOC: EC 10:00
DX: B02.9 Zoster without complications (principal); Z88.1 Allergy status to other antibiotic agents
CPT/HCPCS: 99282